=== PATIENT | male | born 1975 | race Caucasian/White ===

== ENCOUNTER 2016-05-23 11:27 | Emergency (ER) | payer BC, MEDICAID ==
[2016-05-23] MEDS ORDERED: DIPHENHYDRAMINE 50 MG/ML VIAL ONE (12:15)
[2016-05-23] MEDS ORDERED: METHYLPRED SOD SUCC 125 MG/2 ML VIAL ONE (12:15)
[2016-05-23] MEDS ORDERED: ONDANSETRON 4 MG VIAL ONE (12:22)
[2016-05-23] MEDS ORDERED: FAMOTIDINE 20 MG INJ ONE (12:29)
[2016-05-23] MEDS ORDERED: SODIUM CHLORIDE 0.9% 1,000 ML ONE (12:33)
== END 2016-05-23 15:21 | disposition home or self-care (01) ==
LOC: ER 11:27
CPT/HCPCS: 96361; 96374; 96375